=== PATIENT | female | born 2000 | race African-American/Black ===

== ENCOUNTER 2022-02-19 22:11 | Emergency (ER) | payer BC ==
[2022-02-19 22:47] VITALS: BP 124/83; PULSE 70; RESP 18; TEMP 98.7; BMI 34.0
[2022-02-19] MEDS ORDERED: ONDANSETRON *ODT* 4 MG TABLET SL ONE (23:59)
[2022-02-19] MEDS ORDERED: ACETAMINOPHEN 325 MG TABLET (FP) PO ONE (23:59)
[2022-02-20] MEDS ORDERED: ONDANSETRON *ODT* 4 MG TABLET ONE (00:14)
[2022-02-20] MEDS ORDERED: ACETAMINOPHEN 325 MG TABLET (FP) ONE (00:14)
[2022-02-20 00:43] LABS: HCG,QUALITATIVE URINE Negative
[2022-02-20 00:44] LABS: EPI CELLS 14 /uL (0-25.1); HYALINE CASTS 0 /uL (0-3.1); PH,URINE 7.5 (5.0-8.0); URINE APPEARANCE CLEAR; URINE BACTERIA 138 /uL (0-1359); URINE BILIRUBIN NEGATIVE (NEGATIVE); URINE COLOR YELLOW; URINE GLUCOSE (UA) NEGATIVE (NEGATIVE); URINE KETONE TRACE (NEGATIVE); URINE LEUK ESTERASE NEGATIVE (NEGATIVE); URINE NITRITE NEGATIVE (NEGATIVE); URINE PROTEIN 1+ (NEGATIVE); URINE RBC 19 /uL (0-23.9); URINE WBC 5 /uL (0-25.8)
== END 2022-02-20 01:50 | disposition home or self-care (01) ==
LOC: JER 22:11
DX: M79.10 Myalgia, unspecified site (principal); J02.9 Acute pharyngitis, unspecified; R11.10 Vomiting, unspecified
CPT/HCPCS: 0241U-QW; 81003; 84703; 99283-25; Q0162

== ENCOUNTER 2023-03-07 07:23 | Emergency (ER) | payer BC ==
[2023-03-07 07:43] VITALS: BP 113/67; PULSE 89; RESP 18; TEMP 97.7; BMI 32.9
[2023-03-07] MEDS ORDERED: ALBUTEROL SO4 2.5/IPRATROPIUM 0.5 INH SOL 3 ML VIAL.NEB. NEB ONE ×2 (08:05→08:10)
[2023-03-07] MEDS ORDERED: ALBUTEROL SO4 HFA INHALER IH PRN (08:13)
[2023-03-07] MEDS ORDERED: ALBUTEROL SO4 HFA INHALER IH ONE (08:31)
== END 2023-03-07 09:39 | disposition home or self-care (01) ==
LOC: JER 07:23 → JERFT 07:23
PROC: 3E0F7GC Introduction of Other Therapeutic Substance into Respiratory Tract, Via Natural or Artificial Opening (ICD-10-PCS; principal; 2023-03-07)
PROC: 3E0F7GC Introduction of Other Therapeutic Substance into Respiratory Tract, Via Natural or Artificial Opening (ICD-10-PCS; 2023-03-07)
DX: R06.02 Shortness of breath (principal); R07.89 Other chest pain; R09.81 Nasal congestion; J45.901 Unspecified asthma with (acute) exacerbation; R05.9 Cough, unspecified; Z20.822 Contact with and (suspected) exposure to COVID-19
CPT/HCPCS: 0241U-QW; 71045-TC-FY; 84703; 93005; 93010; 99285-25